=== PATIENT | male | born 1965 | race Caucasian/White ===

== ENCOUNTER 2022-08-28 19:19 | Inpatient (IN) | payer OTHER ==
[~2022-08-28] VITALS: Ht 185.4 cm; Wt 115.7 kg
[2022-08-28 20:21] VITALS: BP 156/92
[2022-08-28] MEDS ORDERED: NACL 0.9% 1,000 ML IV ONE ×2 (20:30→20:45)
--- NOTE | 2022-08-28 20:35 | NUR ---
Dr. Sunshine examining patient.
--- NOTE | 2022-08-28 20:36 | NUR ---
cc of right lower back pain / epigastric pain x1 week 6-08/23 cramping, aching, sharp pain, took tylenol and advil. stated possible constipation, took constipation medications laxatives, mag citrate and exlate, had light bm this morning, heavy bm last night. stated takes mostly protein diet and chicken, no etoh, no soda, no cigarettes, sweet no calorie tea hx: gastric bypass may 2018, sleep apnea allergy: morphine, amoxicillin, norco (hives, iching)
[2022-08-28] MEDS ORDERED: PANTOPRAZOLE 40 MG INJ VIAL IVP ONE (20:45)
[2022-08-28 20:57] LABS: APPEARANCE,URINE CLEAR (CLEAR); BILIRUBIN,URINE NEGATIVE (NEGATIVE); BLOOD, URINE TRACE-I (NEGATIVE); COLOR,URINE YELLOW (YELLOW); LEUKOCYTE ESTERASE ,URINE NEGATIVE (NEGATIVE); NITRITE, URINE NEGATIVE (NEGATIVE); PH,URINE 6.5 (5.0-9.0); UGLUCOSE NEGATIVE (NEGATIVE)
[2022-08-28 20:57] LABS: BASOPHILS # (AUTO) 0.1 K/uL (0.00-0.22); BASOPHILS % (AUTO) 0.5 % (0.0-2.0); EOSINOPHILS # (AUTO) 0.2 K/uL (0-0.4); EOSINOPHILS % (AUTO) 1.6 % (0.0-4.0); HEMATOCRIT 41.8 % (36-52); HEMOGLOBIN 14.7 g/dL (12.0-18.0); LYMPHOCYTES # (AUTO) 3.3 K/uL (2.0-11.5); LYMPHOCYTES % (AUTO) 32.5 % (20.5-51.1); MEAN CORPUSCULAR HEMOGLOBIN 31 pg (27-31); MEAN CORPUSCULAR HGB CONC 35 g/dL (33-37); MEAN CORPUSCULAR VOLUME 87.3 fL (80-94); MONOCYTES # (AUTO) 0.8 K/uL (0.8-1.0); NEUTROPHILS # (AUTO) 5.9 K/uL (1.8-7.7); NEUTROPHILS % (AUTO) 57.4 % (42.2-75.2); PLATELET COUNT (AUTO) 195 K/uL (140-450); RED BLOOD CELL COUNT(AUTO) 4.79 MIL/uL (4.20-6.10); WHITE BLOOD COUNT (AUTO) 10.2 K/uL (4.8-10.8)
[2022-08-28 21:17] LABS: ALBUMIN 3.7 g/dL (3.4-5.0); CARBON DIOXIDE 23.7 mmol/L (21-32); CREATININE 0.7 mg/dL (0.6-1.3); POTASSIUM 3.7 mmol/L (3.5-5.1); TOTAL BILIRUBIN 0.7 mg/dL (0.0-1.0)
--- NOTE | 2022-08-28 21:28 | NUR ---
PT TAKEN TO RADIOLOGY
[2022-08-28] MEDS ORDERED: cephALEXin 500 MG CAP PO ONE (22:00)
--- NOTE | 2022-08-28 22:17 | NUR ---
PT RETURN FROM RADIOLOGY
--- NOTE | 2022-08-28 22:24 | NUR ---
PT BACK FROM RAD PAIN LEVEL 06/23. RESP EVEN AND UNLABORED.
--- NOTE | 2022-08-28 23:30 | NUR ---
COVID AND FLU SWAB COLLECTED AND SENT TO LAB
[2022-08-29] MEDS ORDERED: diphenhydrAMINE 50 MG/ML VIAL IVP ONE (00:40)
[2022-08-29] MEDS ORDERED: ONDANSETRON 4 MG/2 ML VIAL IVP ONE (00:40)
[2022-08-29] MEDS ORDERED: MORPHINE SULFATE 2 MG/ML SYR IVP ONE (00:40)
--- NOTE | 2022-08-29 00:49 | NUR ---
PENDING ULTRASOUND AND CT RESULTS. PAIN LEVEL 10/10. RESP EVEN AND UNLABORED.
--- NOTE | 2022-08-29 01:00 | NUR ---
ASSUMED CARE OF PT AT THIS TIME. PT A&OX4, RR EVEN AND UNLABORED. PT IN POSITION OF COMFORT. UPDATED PT ON POC WITH FULL RETURNED VERBAL UNDERSTANDING. WILL FOLLOW THROUGH WITH CURRENT ORDERS. DENIES ANY NEEDS AT THIS TIME. PT WAS MEDICATED WITHIN LAST HALF HOUR WITH PAIN MEDICATION.
[2022-08-29] MEDS ORDERED: NACL 0.9% 2,000 ML IV ONE (01:40)
[2022-08-29] MEDS ORDERED: NACL 0.9% 1,000 ML IV SCH (02:20)
[2022-08-29] MEDS ORDERED: ONDANSETRON 4 MG/2 ML VIAL IVP PRN (02:20)
[2022-08-29] MEDS ORDERED: KETOROLAC 30 MG/ML VIAL IVP PRN (02:20)
--- NOTE | 2022-08-29 04:00 | NUR ---
PT DOES NOT TAKE DAILY MEDICATION. NO MEDICATIONS FOR MED REC
--- NOTE | 2022-08-29 04:02 | NUR ---
PT RESTING, NO S/S OF DISTRESS NOTED. PT DENIES ANY PAIN OR NEEDS AT THIS TIME. VSS WILL CONTINUE TO MONITOR.
--- NOTE | 2022-08-29 05:58 | NUR ---
PT UP AND AMBULATES TO RESTROOM WITH STEADY GAIT.
--- NOTE | 2022-08-29 07:25 | NUR ---
pt requesting ice chips at this time. left at bedside
--- NOTE | 2022-08-29 07:26 | NUR ---
Transfer of care at this time.
[2022-08-29] MEDS ORDERED: cefTRIAXone 1,000 MG in NACL 0.9% 50 ML IV SCH (10:00)
[2022-08-29] MEDS ORDERED: cefTRIAXone 1,000 MG VIAL ONE (10:23)
[2022-08-29] MEDS ORDERED: TAMS0.4C96 PO (14:47)
[2022-08-29] MEDS ORDERED: IBUP-2213 PO (14:48)
[2022-08-29 14:51] VITALS: BP 136/62
--- NOTE | 2022-08-29 15:29 | NUR ---
Patient discharged with v/s stable. Written and verbal after care instructions given and explained. Patient verbalized understanding. Ambulatory with steady gait. All questions addressed prior to discharge. Advised to follow up with PMD. pt given disk, copy of labs and d/c paperwork
== END 2022-08-29 15:29 | disposition home or self-care (01) | DRG 463 ==
LOC: MED 19:19 → MMU 08-29 02:22
PROVIDERS: ADMIT Student in an Organized Health Care Education/Training Program; ATTEND Student in an Organized Health Care Education/Training Program
DX: N12 Tubulo-interstitial nephritis, not specified as acute or chronic (principal); I10 Essential (primary) hypertension; Z20.822 Contact with and (suspected) exposure to COVID-19; Z88.0 Allergy status to penicillin; Z98.84 Bariatric surgery status; Z88.5 Allergy status to narcotic agent; Z88.6 Allergy status to analgesic agent; Z87.442 Personal history of urinary calculi; Z86.73 Personal history of transient ischemic attack (TIA), and cerebral infarction without residual deficits
CPT/HCPCS: 36415; 76705; 80053; 81001; 83690; 85025; 87086; C9113; J0696; J1200; J1885; J2270; J2405; Q0092